=== PATIENT | female | born 1990 | race African-American/Black ===

== ENCOUNTER 2019-05-25 06:03 | Day surgery (SDC) | payer SELFPAY ==
[2019-05-19 12:44] VITALS: BMI 24.4
[2019-05-25] MEDS ORDERED: SUCCINYLCHOLINE CHLORIDE 200 MG/10 ML VIAL ONE (07:21)
[2019-05-25] MEDS ORDERED: PROPOFOL 20 ML ONE ×6 (07:21→14:24)
[2019-05-25] MEDS ORDERED: EPINEPHrine/PF 1 MG/1 ML (1:1,000) AMPULE ONE (07:25)
[2019-05-25] MEDS ORDERED: LIDOCAINE HCL 1% PRESERVATIVE FREE - 30ML VIAL ONE (07:25)
[2019-05-25] MEDS ORDERED: MIDAZOLAM HCL 2 MG/2 ML SINGLE DOSE VIAL ONE (07:25)
[2019-05-25] MEDS ORDERED: HEPARIN NA (PORCINE) 5,000 UNITS/ML 1ML VIAL ONE (07:46)
[2019-05-25] MEDS ORDERED: ONDANSETRON 4 MG/2 ML VIAL ONE ×2 (08:35→14:33)
[2019-05-25] MEDS ORDERED: DEXAMETHASONE SOD PHOSPHATE 4 MG/1 ML VIAL ONE (08:35)
[2019-05-25] MEDS ORDERED: ceFAZolin SODIUM 1 GM VIAL ONE ×2 (08:35→21:00)
[2019-05-25] MEDS ORDERED: PHENYLEPHRINE HCL 10 MG/1 ML SINGLE DOSE VIAL ONE (09:10)
[2019-05-25] MEDS ORDERED: DESFLURANE GAS 240 ML BOTTLE IH ONE (09:14)
[2019-05-25] MEDS ORDERED: HYDROmorphone HCL/PF 1 MG/ML AMP ONE (10:33)
[2019-05-25] MEDS ORDERED: ROCURONIUM BROMIDE 50 MG/5 ML VIAL ONE (11:11)
[2019-05-25] MEDS ORDERED: ONDANSETRON 4 MG/2 ML VIAL IVPUSH PRN (13:22)
[2019-05-25] MEDS ORDERED: oxyCODONE HCL 5 MG TABLET PO PRN ×2 (13:23)
[2019-05-25] MEDS ORDERED: BACITRACIN 15 GM TUBE TOPICAL OINTMENT ONE (13:28)
[2019-05-25] MEDS ORDERED: LACTATED RINGERS SOLUTION 1,000 ML IV SCH ×2 (13:30→15:45)
[2019-05-25] MEDS ORDERED: ACETAMINOPHEN 1000 MG/100 ML VIAL (NON FORMULARY) IVPB ONE (13:45)
[2019-05-25] MEDS ORDERED: morphine SULFATE 4 MG/ML VIAL IVPUSH PRN (15:32)
[2019-05-25] MEDS ORDERED: ONDANSETRON 4 MG/2 ML VIAL IVPB PRN (15:32)
--- NOTE | 2019-05-25 15:39 | OP ---
Operative Note - Note: Operative Date: 05/25/19 Pre-Operative Diagnosis: cosmetic Operation: bilateal breast reduction with abdominoplasty Post-Operative Diagnosis: Same as Pre-op Surgeon: [employer] Professional: Charles Martin Anesthesia: General Specimens Removed: bilateral breast tissue Drains, Volume Out (mls): 4
[2019-05-25] MEDS ORDERED: ACETAMINOPHEN INJECTION 100 ML IVPB ONE (16:16)
--- NOTE | 2019-05-25 20:43 | OP ---
DATE OF OPERATION: 05/25/2019 TITLE OF PROCEDURE: Repair of umbilical hernia. TITLE OF PROCEDURE: Bilateral breast reduction with abdominoplasty and bilateral flank liposuction. ATTENDING SURGEON: Kole Loomis MD ANESTHESIA: General endotracheal. WOOD MILLER: Charles Martin PA-C PREOPERATIVE DIAGNOSIS: Cosmetic deformity of breasts and abdomen. POSTOPERATIVE DIAGNOSIS: Cosmetic deformity of breasts and abdomen. The patient is given 5000 units of subcutaneous heparin in the holding area. She is counseled on all risks, benefits, alternatives, limitations to the operation; understands; agrees to proceed. She is marked in a standing position, awake, is aware of all incisions and resulting scars. The patient is given GURPREET hose and sequential compression stockings in the holding area, brought to the operating room, placed in supine position. Position is carefully checked by surgical and anesthesia teams. Blue arm foam arm cradles are placed on both sides. The arms are placed in a neutral position and secured with standard operative aids. A pillow is placed below the knees. A Beth catheter is placed after anesthesia is given. Beth catheter is removed at the end of the procedure. Patient is given 2 g of Ancef preoperatively. She is then prepped and draped in standard surgical fashion. At this point, the timeout is called. Patient, procedure, sites, and sides are verified. The nipples are traced bilaterally with a 42-mm cookie cutter. A superior pedicle is developed. The right breast is dressed first. The pedicle is de-epithelialized with the exception of the nipple-areolar complex. The skin incisions are then made, pedicles developed, and mobilized into the keyhole pattern where it is temporarily stapled in place. A resection of skin and glandular tissue from the inferior central, medial, and lateral aspects are performed. Medial and lateral pillars are created. The resected weight is 240 g of tissue. A mirror-image procedure is then performed on the contralateral left side where the resected weight is 132 g of tissue. Nipples are pink and viable bilaterally. The hemostasis is meticulously achieved. The wounds are copiously irrigated. Size 10 round KENNA drains are then placed into the wounds, brought out through lateral extents of the incisions, secured with a 2-0 silk drain suture. The medial and lateral pillars are secured to one another with a series of interrupted 2-0 Vicryl suture. The inverted T-point is closed with a half-buried, mattress 2-0 nylon suture. Skin is tailor tacked for closure. Closure is performed with a series of interrupted, buried, deep dermal, 3-0 Monocryl suture, followed by a running, subcuticular 3-0 Monocryl suture on all incision lines. Attention is then addressed to the abdomen. The abdomen inferior incision is made, and dissection carried down to the level of the abdominal wall fascia. At this level, dissection is continued along the fascia to the level of the umbilicus. The perforating blood vessels are ligated as they are encountered at the level of the umbilicus. The umbilicus is circumferentially incised, developed on a Y fibrofatty stalk to the fascia. Dissection is then continued cephalad to the costal margins bilaterally and xiphoid process in the midline. A small umbilical hernia is noted that was not noted preoperatively. This is able to be repaired with a small blunt dissection inferior to the umbilical skin with closure of the palpable defect with a single 0 Prolene suture [id number]. The umbilicus is pink and viable with good bright red bleeding after this from the dermis. A midline plication is then performed with a series of interrupted, buried, [id number] number 1 Prolene sutures both cephalad and caudal to the umbilicus. A second layer of running, locking number 1 Prolene sutures are then performed. End point is smooth, even tension along the abdominal wall. Patient is then brought to a 30-degree flexed position where the skin of the abdominoplasty flap is transposed. The excess skin and fat are marked and are excised. Hemostasis once again meticulously achieved with the skin tailor tacked. A vertically-oriented, oval incision is made on the abdominoplasty flap for translocation of the umbilicus. This is then inset with a series of interrupted, buried, deep dermal 3-0 Monocryl suture, followed by a combination of running and interrupted 4-0 nylon sutures. Size 10 flat KENNA drains are placed into the abdominal wound. The right-sided drain is in the superior part of the wound, and left-sided drain is in the inferior part of the wound. Drains were secured with a 2-0 silk drain suture. Wetting solution is then infiltrated to the bilateral flanks. A total of 200 mL of wetting solution is infiltrated into each flank. While the abdominal closure is being performed, the wetting solution is allowed to work. Abdominal closure is performed with a series of interrupted, superficial fascial, Geronimo layer, 2-0 Vicryl suture, followed by a series of interrupted, buried, deep dermal 3-0 Monocryl suture, followed by a running mid-dermal 3-0 V-Loc suture. Liposuction is then performed using a [employer] power-assisted liposuction system to each flank. The total liposuction aspirate is 100 mL from each flank. Final layer of closure is performed with a series of interrupted 4-0 nylon sutures. Drains were placed to bulb suction. Dressings were applied with 1/2-inch Steri-Strips, 4-x-4 gauze, ABD gauze, Hypafix tape, and a compressive abdominal/breast binder. Patient is awoken from anesthesia. Beth catheter is removed. She is transferred to her hospital bed in the flexed position, transferred to Recovery without complication. KOLE LOOMIS M.D. [id number]
[2019-05-25] MEDS ORDERED: DEXTROSE 5%-WATER - 50 ML IVPB ONE (21:01)
[2019-05-25] MEDS: CEFAZOLIN 1 GM in DEXTROSE 5%-WATER - 50 ML IVPB SCH (21:16)
[2019-05-26] MEDS: oxyCODONE HCL 5 MG TABLET PO PRN ×3 (00:31→07:57)
[2019-05-26] MEDS ORDERED: ceFAZolin SODIUM 1 GM VIAL ONE ×2 (03:03→08:00)
[2019-05-26] MEDS ORDERED: DEXTROSE 5%-WATER - 50 ML IVPB ONE ×2 (03:03→08:00)
[2019-05-26] MEDS: CEFAZOLIN 1 GM in DEXTROSE 5%-WATER - 50 ML IVPB SCH ×2 (03:52→08:03)
[2019-05-26 06:06] VITALS: TEMP 99
--- NOTE | 2019-05-26 07:28 | PN ---
Progress Note (short form) - Note Progress Note: All ts viable, no collectioins or infections VSS AF OK for discharge after heparin sq
[2019-05-26] MEDS ORDERED: HEPARIN NA (PORCINE) 5,000 UNITS/ML 1ML VIAL SQ SCH (08:00)
[2019-05-26 09:55] VITALS: BP 115/75; PULSE 100
--- NOTE | 2019-05-26 10:06 | PN ---
Progress Note, Physician Chief Complaint: s/p abdominoplasty mastopexy under general anesthesia History of Present Illness: post op day one - Current Medication List Current Medications: Active Medications Heparin Sodium (Porcine) (Heparin -) 5,000 unit SQ BID KENJI Last Admin: 05/26/19 08:02 Dose: 5,000 unit Cefazolin Sodium 1 gm/ (Dextrose) 50 mls @ 100 mls/hr IVPB Q6H-IV KENJI Stop: 05/31/19 20:59 Last Admin: 05/26/19 08:03 Dose: 100 mls/hr Lactated Ringer's (Lactated Ringers Solution) 1,000 mls @ 75 mls/hr IV ASDIR KENJI Last Admin: 05/25/19 18:27 Dose: Not Given Morphine Sulfate (Morphine Sulfate) 3 mg IVPUSH Q4H PRN PRN Reason: PAIN LEVEL 6-10 Last Admin: 05/25/19 18:17 Dose: 3 mg Ondansetron HCl (Zofran Injection) 8 mg IVPB Q6H PRN PRN Reason: NAUSEA Last Admin: 05/25/19 18:18 Dose: 8 mg Oxycodone HCl (Roxicodone -) 5 mg PO Q3H PRN PRN Reason: PAIN LEVEL 1-5 Oxycodone HCl (Roxicodone -) 10 mg PO Q3H PRN PRN Reason: PAIN LEVEL 4 - 6 Last Admin: 05/26/19 07:57 Dose: 10 mg - Objective Vital Signs: Vital Signs Temperature 99.0 F 05/26/19 09:50 Pulse Rate 100 H 05/26/19 09:50 Respiratory Rate 18 05/26/19 09:50 Blood Pressure 115/75 05/26/19 09:50 O2 Sat by Pulse Oximetry (%) 97 05/26/19 09:50 Constitutional: Yes: Well Nourished Cardiovascular: Yes: WNL Respiratory: Yes: WNL Gastrointestinal: Yes: WNL Assessment/Plan Pain controlled, no nausea or vomiting, no adverse anesthetic effects, dept of anesthesiology will sign off care at this time
--- NOTE | 2019-05-29 12:14 | PATH ---
Surgical Pathology Report Patient Name: TAVON BONILLA [facility]. Rec. #: [id number] /Age/Gender: 1990 (Age: 28) / F Account: [id number] Location: [facility] Taken: 05/25/2019 Received: 05/25/2019 Reported: 05/29/2019 Physicians: Kole Yancey Specimen(s) Received A: RIGHT BREAST SKIN AND TISSUE B: LEFT BREAST SKIN AND TISSUE Clinical History Cosmetic Final Diagnosis A. SKIN AND TISSUE, RIGHT BREAST, MASTOPEXY: BENIGN BREAST TISSUE. SKIN WITH NO PATHOLOGIC FINDINGS. B. SKIN AND TISSUE, LEFT BREAST, MASTOPEXY: BENIGN BREAST TISSUE. SKIN WITH NO PATHOLOGIC FINDINGS. Electronically Signed Olivia Bernstein M.D. Gross Description A. Received in formalin labeled "right breast skin and tissue," is a 211 g, 12.5 x 11.0 x 3.8 cm aggregate of multiple unoriented portions of fibroadipose tissue and brown, unremarkable skin. Sectioning reveals abundant dense, white, focally firm fibrous tissue. [employer]inator sections are submitted in 4 cassettes. B. Received in formalin labeled "left breast skin and tissue," is a 139 g, 9.5 x 8.5 x 2.8 cm aggregate of multiple unoriented portions of fibroadipose tissue and brown, unremarkable skin. Sectioning reveals abundant dense, white, focally firm fibrous tissue. [employer]inator sections are submitted in 4 cassettes 05/26/201905/26/2019
== END 2019-05-26 11:50 | disposition home or self-care (01) ==
LOC: FASU 06:03 → FM/S 15:32 → FASU 05-26 11:50
PROVIDERS: ATTEND Plastic Surgery
PROC: 0J083ZZ Alteration of Abdomen Subcutaneous Tissue and Fascia, Percutaneous Approach (ICD-10-PCS; 2019-05-25)
PROC: 0H0V0ZZ Alteration of Bilateral Breast, Open Approach (ICD-10-PCS; principal; 2019-05-25 09:05)
PROC: 0J080ZZ Alteration of Abdomen Subcutaneous Tissue and Fascia, Open Approach (ICD-10-PCS; 2019-05-25 09:05)
DX: Z41.1 Encounter for cosmetic surgery (principal)
CPT/HCPCS: 81025; 88305-TC; 94760; J0131; J1644